=== PATIENT | male | born 1995 | race Caucasian/White ===

== ENCOUNTER 2018-02-08 00:14 | Emergency (ER) | payer OTHER ==
[2018-02-08] MEDS ORDERED: Lidocaine 1% (PF) 30 ML VIAL ONE (02:19)
[2018-02-08] MEDS ORDERED: Bacitracin Zinc 1 Packet ONE (02:49)
[2018-02-08] MEDS ORDERED: Adacel (T-DAP) 0.5 ML VIAL ONE (03:21)
[2018-02-08] MEDS ORDERED: Ketorolac Tromethamine 60 MG/2 ML VIAL ONE (03:21)
--- NOTE | 2018-02-08 08:03 | RAD ---
THREE VIEWS LEFT THUMB: DATE: 02/08/18. HISTORY: Left thumb injury. The patient smashed thumb at work. FINDINGS: There is a fracture involving the distal tuft of the distal phalanx left thumb without displacement o r fracture fragments. This is just beneath the nailbed and open fracture could not be excluded on th is exam. There are several punctate radiopaque densities overlying the subcutaneous soft tissues of the left thumb which may be related to overlying skin artifact as opposed to radiopaque foreign ruthie s. No other findings. IMPRESSION: Nondisplaced fracture tuft of the distal phalanx left thumb. This is just beneath the nailbed and an open fracture could not be excluded based on this exam. CODE T POS: SHALONDA
== END 2018-02-08 03:55 | disposition home or self-care (01) ==
LOC: ERS 00:14
DX: S61.101A Unspecified open wound of right thumb with damage to nail, initial encounter (principal); Y92.69 Other specified industrial and construction area as the place of occurrence of the external cause; F32.9 Major depressive disorder, single episode, unspecified; F17.210 Nicotine dependence, cigarettes, uncomplicated; W22.8XXA Striking against or struck by other objects, initial encounter
CPT/HCPCS: 11750; 90471; 90715; 96372; J1885; J2001

== ENCOUNTER 2021-07-03 12:40 | Emergency (ER) | payer OTHER, SELFPAY | END 2021-07-03 14:09 | disposition home or self-care (01) | LOC: ERS 12:40 | DX: K42.9 Umbilical hernia without obstruction or gangrene (principal); I10 Essential (primary) hypertension; F17.210 Nicotine dependence, cigarettes, uncomplicated | CPT/HCPCS: 99283 ==